=== PATIENT | male | born 1970 | race Caucasian/White ===

== ENCOUNTER → 2018-05-04 | Outpatient (CLI) | payer OTHER ==
[~2018-05-04] MED LIST: CELEBREX100 MG PO; DIOVAN80 MG PO; METOPROLOL SUCC50 MG PO
--- NOTE | 2018-05-04 09:10 | Diagnostic Imaging Report ---
MRI of the left ankle without contrast. History: Achilles tendon tear. Heel pain. Decreased range of motion. Technique: Utilizing a high-field 1.5T magnet, the following sequences were acquired: PD FS in all 3 planes with additional axial PD. Comparison: None. Findings: Achilles tendon and plantar fascia: There is thickening and degeneration with mild midsubstance partial tearing involving the distal Achilles tendon adjacent to the posterior calcaneal insertion site. There is bone marrow edema in the posterior calcaneus and there is mild retrocalcaneal bursitis and mild adjacent soft tissue edema. 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 No full-thickness Achilles tendon tear or retraction is seen. The plantar fascial tissues are intact. There is an inferior calcaneal bone spur. Cartilage and bone: Negative for osteochondral lesion of the tibiotalar and subtalar joints. Negative for fracture, osteonecrosis, or dislocation. Medial ankle: There is scarring of the deltoid ligament complex.. The medial flexor tendons are normal. There is a physiologic amount of fluid within the tendon sheath of FHL. Lateral ankle: There is scarring of the lateral ankle ligamentous structures. The peroneal tendons are intact. Anterior ankle: The anterior extensor tendons are normal. Other findings: There is a tibiotalar joint effusion and synovitis. Impression: Thickening and degeneration with mild midsubstance partial tearing involving the distal Achilles tendon adjacent to the posterior calcaneal insertion site. There is bone marrow edema in the posterior calcaneus and there is mild retrocalcaneal bursitis and mild adjacent soft tissue edema. 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 No full-thickness Achilles tendon tear or retraction is seen. Scarring of the medial and lateral ankle ligamentous structures likely due to old trauma. Tibiotalar joint effusion and synovitis. Signed by: Dr. Valdo Pressley M.D. on 05/04/2018 9:06 AM
== END ==
LOC: MRI 07:36
PROVIDERS: ATTEND Family Medicine
DX: S86.012A Strain of left Achilles tendon, initial encounter (principal)